=== PATIENT | female | born 1935 | race African-American/Black ===

== ENCOUNTER 2016-05-16 17:04 | Inpatient (IN) | payer MEDICARE, OTHER ==
--- NOTE | ~2016-05-16 | DS ---
Discharge Summary [address] [place]. [address] NAME: NICOLASA SHELDON : 37 STATUS : DIS IN PAT#: [id number] AGE: 80 ADM/REG DATE : 05/17/16 MR#: [id number] REPORT SERV DATE: 05/20/16 DICTATED BY: ROBERTA MÁRQUEZ DATE: 05/19/16 REPORT STATUS : Draft TRANSCRIBED BY: MODL DATE: 05/19/16 ADMISSION DATE: 05/17/2016 DISCHARGE DATE: 05/19/2016 REASON FOR ADMISSION: Acute on chronic kidney disease. HISTORY OF PRESENT ILLNESS: Please refer to Dr. Nelson's history and physical dated 05/16/2016 for complete details regarding the patient's admission. In brief, the patient was admitted to the Hospitalist Service for CHERYLE on CKD, stage 4, and Trichomonas. HOSPITAL COURSE: The patient had an uncomplicated hospital course. She follows closely with Dr. Garcia for her CKD, stage 4. She presented with complaints of facial swelling. Urinalysis showed positive for Trichomonas. She was started on p.o. Flagyl along with Levaquin prophylactically for a concern for a UTI. I assumed care of this patient the day after she was admitted. She did not exhibit any signs of significant anasarca. She was gently hydrated and her kidney function was trending down. Dr. Capellan was consulted and followed throughout the hospitalization, recommended switching her torsemide to 20 mg. He had ordered some Hemoccult stools, they were positive; however, the patient tells me on the day of discharge that her bowel movements have been brown. She does have a known history of esophageal and duodenal ulcer along with esophagitis for which she is on a PPI. Iron studies were obtained which were suggestive of anemia of chronic disease. The patient feels better and is requesting to go home. The patient was discharged today in stable condition to home if okay by Nephrology. DISCHARGE DIAGNOSES: Include: 1. Acute kidney injury on chronic kidney disease, stage 4. 2. Urinary tract infection with mixed len. 3. Trichomonas infection. 4. Insulin-dependent diabetes. 5. Uncontrolled hypertension. 6. Anasarca. 7. Hypokalemia. 8. History of chronic diastolic heart failure. 9. History of renal tubular acidosis type 4. 10.Anemia of chronic disease. 11.Glaucoma. 12.Esophagitis. 13.History of duodenal and esophageal ulcers. PROCEDURES: Include a consultation with Dr. Capellan, CT scan of the brain without contrast which showed moderate generalized atrophy and no acute process, and chest x-ray which showed cardiomegaly with small pleural effusions. DISCHARGE MEDICATIONS: Include gabapentin 100 mg three times a day; insulin injection, sliding scale; Levaquin 500 mg every 48 hours for the next 4 days; Protonix 40 mg once a day; sodium bicarbonate 1300 mg three times a day; Carafate 1 g every six hours; Demadex 20 Discharge Summary [address] [address] NAME: NICOLASA SHELDON : 36 STATUS : DIS IN PAT#: [id number] AGE: 80 ADM/REG DATE : 05/17/16 MR#: [id number] REPORT SERV DATE: 05/20/16 DICTATED BY: ROBERTA MÁRQUEZ DATE: 05/19/16 REPORT STATUS : Draft TRANSCRIBED BY: LOS DATE: 05/19/16 mg daily; clonidine 0.1 mg twice a day; hydralazine 75 mg three times a day; timolol eye drop twice a day; Simbrinza 1 drop 3 times a day; and verapamil 120 mg twice a day. FOLLOWUP: The patient will follow up with Dr. aGrcia and her PCP. This is Dr. Roberta Márquez spending over 30 minutes in discharge plan and coordination of care on Ms. Sheldon. TINY/LOS Roberta Márquez MD / [id number] CC: MD CHAPIS Hassan M.D.
--- NOTE | ~2016-05-16 | CN ---
Consultation Report [facility] [address] [place]. [address] NAME: NICOLASA SHELDON : 37 STATUS : ADM Bev PAT#: [id number] AGE: 80 ADM/REG DATE : 05/16/16 MR#: [id number] REPORT SERV DATE: 05/18/16 DICTATED BY: LARRY CHOU DATE: 05/17/16 REPORT STATUS : Draft TRANSCRIBED BY: MODL DATE: 05/17/16 NEPHROLOGY CONSULTATION DATE OF CONSULTATION: 05/17/2016 INDICATION FOR CONSULTATION: Acute on chronic kidney disease. HISTORY OF PRESENT ILLNESS: Ms. Sheldon is a 80-year-old female with a history of stage IV CKD, who presented to the emergency room with diffuse swelling of her face, lower extremities, as well as weakness. She had previously been admitted to the hospital in late February 2016 with sepsis due to E. coli pyelonephritis. Her creatinine peaked at 3.89 and was 2.2 at time of release to [facility]. Her creatinine ranged between 3 and 3.2 at [facility]. She has been on diuretics for proteinuria and has initiated evaluation for myeloma under Dr. Pablo Argueta. She is awaiting evaluation by an web applications architect. Her creatinine was 3.2 on admission and has fallen to 2.92. She has been given albumin and diuretics were presently put on hold. She indicates that she typically uses salt when eating. 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 PAST SURGICAL HISTORY: Exploratory laparotomy for small bowel obstruction and abdominal hysterectomy. ALLERGIES: NONE KNOWN. MEDICATIONS: Simbrinza one drop both eyes, clonidine, Neurontin, hydralazine, Levemir Insulin, Protonix, sodium bicarb, Carafate, Timolol eyedrops, Demadex, verapamil. SOCIAL HISTORY: The patient continues to smoke one-half pack a day of cigarettes. No alcohol use or illicit drugs. She has a friend but is not . FAMILY HISTORY: Mother at age 97. Father age of 101. Siblings with diabetes, macular degeneration, hypertension. No end-stage renal disease. REVIEW OF SYSTEMS: HEENT: No change in visual acuity. No epistaxis. No otic infection. No pharyngitis. PULMONARY: Notes occasional shortness of breath. No cough or hemoptysis. CARDIAC: Notes lower extremity edema and swelling in face. No chest pain. GI: No nausea, vomiting, or melena. : Denies dysuria, gross hematuria, or pyuria. MUSCULOSKELETAL: Some pain in back. Consultation Report [address] [place]. [address] NAME: NICOLASA SHELDON : 37 STATUS : ADM Bve PAT#: [id number] AGE: 80 ADM/REG DATE : 05/16/16 MR#: [id number] REPORT SERV DATE: 05/18/16 DICTATED BY: LARRY CHOU DATE: 05/17/16 REPORT STATUS : Draft TRANSCRIBED BY: MODSal DATE: 05/17/16 INTEGUMENT: No itching, no rash. NEUROLOGIC: No lateralizing weakness or seizure disorder. Remainder of 12-point review of systems is negative. PHYSICAL EXAMINATION: GENERAL: A pleasant female, alert, and cooperative. VITAL SIGNS: Blood pressure 161/74, temperature 98.1, respiratory rate 18, pulse 83. HEENT: Eyes, no scleral icterus. Pupils equal, reactive to light. Extraocular movement intact. Nares patent. No discharge. Throat, no injection. Mucous membranes moist. NECK: No thyromegaly, masses, or bruits. CHEST/LUNGS: Few late crackles posteriorly. No wheezing. No dullness to percussion. CARDIAC: Regular rate and rhythm, 1/6 systolic ejection murmur. No gallop or rub. ABDOMEN: Supple. Normoactive bowel sounds. Nontender. No hepatosplenomegaly. No masses. BREASTS: Exam not performed. PELVIC: Exam not performed. RECTAL: Exam not performed. EXTREMITIES: Trace edema. No calf tenderness. MUSCULOSKELETAL: No deformity. NEUROLOGIC: Cranial nerves intact. No lateralizing weakness. IMPRESSION: 1. Acute on chronic kidney disease versus progression of underlying chronic kidney disease, late stage IV. 2. Possible urinary tract infection. 3. Edema, related to underlying proteinuria, possible sodium intake. 4. Type 2 diabetes mellitus, poorly controlled. 5. Chronic obstructive pulmonary disease. 6. Chronic diastolic congestive heart failure. 7. Glaucoma. 8. Macular degeneration. 9. Anemia. 10.History of esophagitis, gastritis, peptic ulcer disease, and gastroparesis. 11.Remote E. coli pyelonephritis. 12.Possible myeloma. PLAN: 1. Concur with the albumin. We will initiate torsemide. 2. Lab. CG/MODL Larry Consultation Report [address] [place]. [address] NAME: NICOLASA SHELDON : 37 STATUS : ADM Bev PAT#: [id number] AGE: 80 ADM/REG DATE : 05/16/16 MR#: [id number] REPORT SERV DATE: 05/18/16 DICTATED BY: LARRY CHOU DATE: 05/17/16 REPORT STATUS : Draft TRANSCRIBED BY: LOS DATE: 05/17/16 Keegan Chou / [id number] CC: MD Jose Hassan
--- NOTE | ~2016-05-16 | HP ---
History And Physical [facility] [address] [place]. [address] NAME: NICOLASA SHELDON : 37 STATUS : ADM Bev PAT#: [id number] AGE: 80 ADM/REG DATE : 05/16/16 MR#: [id number] REPORT SERV DATE: 05/16/16 DICTATED BY: TOMMY GALVAN DATE: 05/16/16 REPORT STATUS : Draft TRANSCRIBED BY: MODL DATE: 05/16/16 DATE OF ADMISSION: 05/16/2016 POINT OF ENTRY: [facility] Emergency Department. PRIMARY BACK HOE MACHINE OPERATOR: Dr. Garcia. CHIEF COMPLAINT: Swelling and weakness. HISTORY OF PRESENT ILLNESS: Ms. Sheldon is a 80-year-old female with a history of poorly controlled insulin-dependent diabetes mellitus type 2 with most recent hemoglobin A1c of greater than 18.0 as well as hypertension, chronic kidney disease stage 4, and other medical comorbidities, who presents to the emergency department today with reports of diffuse swelling as well as weakness. The patient was admitted to the Hospitalist Service from 03/02/2016 through 03/21/2016 for E coli, pyelonephritis with associated sepsis and acute kidney injury. At that time, she was found to have uncontrolled diabetes with a hemoglobin A1c of 18. Her hospital course was also complicated by anasarca and volume overload associated with resuscitation as well as some GI bleeding secondary to chronic gastritis as well as evidence of esophagitis. The patient returns to the emergency room today and stating that she is having some diffuse facial swelling as well as swelling of her right upper extremity and bilateral lower feet. She denies any swelling of the lips, face, or tongue. Denies any troubles with swallowing, speaking, or any shortness of breath or stridor. The patient reports compliance with her hypertensive medications as well as her Levemir, however, she states she is not taking her NovoLog as she is afraid, it will cause hypoglycemia at home. She states that she has been doing well with staying hydrated and taking in fluids. Initial evaluation in the emergency department notable for creatinine of 3.20. Most recent creatinine in our system is 2.07. Urinalysis is positive for urinary tract infection. CT scan of the head was unremarkable. Chest x-ray did show some mild intravascular volume overload. She was subsequently admitted to the Hospitalist Service for further evaluation and management. The patient denies any recent fevers, night sweats, chills, chest pain, palpitations, shortness of breath, cough, sputum production, abdominal pain, nausea, vomiting, diarrhea, constipation, dysuria, melena, or hematochezia. REVIEW OF SYSTEMS: Comprehensive review of system is otherwise negative unless listed in history of present illness. PREVIOUS MEDICAL HISTORY: 1. Chronic kidney disease stage 4, baseline creatinine approximately 2. 2. Renal tubular acidosis type 4. History And Physical [address] [address] NAME: NICOLASA SHELDON : 37 STATUS : ADM Bev PAT#: [id number] AGE: 80 ADM/REG DATE : 05/16/16 MR#: [id number] REPORT SERV DATE: 05/16/16 DICTATED BY: TOMMY GALVAN DATE: 05/16/16 REPORT STATUS : Draft TRANSCRIBED BY: LOS DATE: 05/16/16 3. Uncontrolled insulin-dependent diabetes mellitus type 2. Hemoglobin A1c of 18.0. 4. Hypertension. 5. Chronic diastolic congestive heart failure. 6. COPD. 7. Macular degeneration. 8. Glaucoma. 9. Gastroparesis. 10.Chronic anemia secondary to anemia of chronic disease. 11.History of peptic ulcer disease. 12.History of esophagitis and gastritis. 13.History of E coli urinary tract infection with sepsis. 14.History of anasarca. SURGICAL HISTORY: 1. Abdominal hysterectomy. 2. Exploratory laparotomy as a child for small bowel obstruction. ALLERGIES: NO KNOWN DRUG ALLERGIES. HOME MEDICATIONS: 1. Simbrinza one drop t.i.d. both eyes. 2. Clonidine 0.1 mg b.i.d. 3. Neurontin 100 mg t.i.d. 4. Hydralazine 75 mg t.i.d. 5. Levemir 10-14 units daily depending on glucose. 6. Protonix 40 mg daily. 7. Sodium bicarbonate 1300 mg t.i.d. 8. Carafate 1 g q.6 hours. 9. Timolol b.i.d. both eyes. 10.Demadex 40 mg daily. 11.Verapamil 180 mg daily. SOCIAL HISTORY: She still smokes about a half pack per day. Denies any illicits. Denies any alcohol. FAMILY MEDICAL HISTORY: Mother of old age at 97. Father of old age at 104. Siblings with diabetes and macular degeneration. LABORATORY DATA AND IMAGIN. White count is 7.9, hemoglobin is 10.0, hematocrit is 30.2, platelet count is 389. INR 1.0. 2. Sodium is 141, potassium 3.1, chloride 100, carbon dioxide 30, BUN 40, creatinine 3.20, glucose is 187, calcium is 8.3, magnesium is 1.8. 3. Troponin is 0.03. 4. Urinalysis: Specific gravity is 1.012, hazy with large leukocyte esterase with 16 red, 80 white blood cells per high-powered field with 9 epithelial cells with rare bacteria as well as positive for Trichomonas. History And Physical [address] [address] NAME: NICOLASA SHELDON : 37 STATUS : ADM Bev PAT#: [id number] AGE: 80 ADM/REG DATE : 05/16/16 MR#: [id number] REPORT SERV DATE: 05/16/16 DICTATED BY: TOMMY GALVAN DATE: 05/16/16 REPORT STATUS : Draft TRANSCRIBED BY: LOS DATE: 05/16/16 5. EKG per my review shows normal sinus rhythm with no evidence of any acute ischemic infarction. Chest x-ray per my review shows some mild cardiomegaly as well as mild bilateral pleural effusions, right greater than left as well as some mild intravascular volume overload. 6. CT scan of the brain shows no acute intracranial abnormality. PHYSICAL EXAMINATION: VITAL SIGNS: Temperature is 98.2 degrees Fahrenheit, pulse is 82, respirations 18, saturating 95% on room air, blood pressure is 174/66. On recheck, blood pressure is now 197/91. GENERAL: The patient is awake, alert, in no acute distress, resting comfortably. She is an elderly female. Family is at bedside. HEENT: Atraumatic and normocephalic. Moist mucous membranes. Pupils are equal, round, reactive to light and accommodation. Extraocular eye movements are intact. No scleral icterus. NECK: No jugular venous distention. No carotid bruits. CARDIAC: Regular rate and rhythm. A 2/6 systolic murmur heard best over the left lower sternal border. LUNGS: Clear to auscultation bilaterally, except for some decreased breath sounds in the bases, but no wheezes, rhonchi, or crackles. ABDOMEN: Soft, nontender, nondistended. Good bowel sounds. No rebound, guarding, rigidity. EXTREMITIES: Warm and well perfused. She does have some 1+ bilateral lower extremity edema as well as some mild edema of the bilateral upper extremities. SKIN: Warm and dry, except for noted above. PSYCH: Affect appropriate. NEURO: Alert and oriented x3. Cranial nerves II through XII grossly intact. Speech is normal. Gait not assessed. ASSESSMENT: Ms. Sheldon is a 80-year-old female, who presents primarily with reports of diffuse swelling and found to have evidence of acute kidney injury on chronic kidney disease stage 4 as well as urinary tract infection. PROBLEM LIST: 1. Acute kidney injury on chronic kidney disease stage 4. 2. Urinary tract infection. 3. Trichomonas infection. 4. Insulin-dependent diabetes mellitus type 2. 5. Uncontrolled hypertension. 6. Diffuse edema, likely anasarca. 7. Hypokalemia. 8. History of chronic diastolic congestive heart failure. PLAN: 1. Acute kidney injury on chronic kidney disease stage 4. Suspect this is due to hypovolemia as well as possible contribution for uncontrolled hypertension and diabetes. We will hold nephrotoxic medications, provide some gentle IV fluid hydration, checking urine lytes. We will consult Dr. Garcia for assistance. History And Physical [address] [address] NAME: NICOLASA SHELDON : 37 STATUS : ADM Bev PAT#: [id number] AGE: 80 ADM/REG DATE : 05/16/16 MR#: [id number] REPORT SERV DATE: 05/16/16 DICTATED BY: TOMMY GALVAN DATE: 05/16/16 REPORT STATUS : Draft TRANSCRIBED BY: MODL DATE: 05/16/16 2. Urinary tract infection. We will place the patient on IV Levaquin as in her most recent hospitalization had both E coli as well as Enterococcus faecalis, which will cover both. Follow up urine culture. 3. Trichomonas infection. We will place the patient on Flagyl 500 mg b.i.d. for seven days. 4. Uncontrolled insulin-dependent diabetes mellitus type 2. We will recheck her hemoglobin A1c. Continue the patient's home Levemir, place her on a level 2 sliding scale. 5. Uncontrolled hypertension. Continue the patient's home medications and IV hydralazine p.r.n. 6. Edema, likely anasarca. The patient reports swelling of the face, arms, and legs. I suspect this is likely anasarca from her worsening chronic kidney disease as well as severe hypoalbuminemia from proteinuria as review of [employer] reveals her last known albumin level is 1.6. Albumin level here is pending at time of dictation. We will provide some IV albumin in addition to the gentle IV fluid hydration and observe for improvement. 7. DVT prophylaxis. Heparin subcutaneously. CODE STATUS: The patient wishes to be full code. JCB/MODL Tommy Galvan MD / [id number] CC: MD Dr. Tutu Woods of [facility] Sriram Garcia M.D.
[~2016-05-16 17:04] MED LIST: BETIMOL0.5 % OP; HYDROCHLOROT25 MG PO; INSNOV7030 SC; LEVEMIR SC; LISINOPRIL40 MG PO; SIMBRINZA 1%-0.28 ML OPH; V120 PO
[2016-05-16 17:49] LABS: BASOPHILS 0.5 %; BASOPHILS ABSOLUTE 0.04 10/3/uL (0.0-0.16); EOSINOPHILS 1.7 %; EOSINOPHILS ABSOLUTE 0.13 10/3/uL (0.0-0.53); IMMATURE GRANULOCYTES 0.1 %; IMMATURE GRANULOCYTES ABSOLUTE 0.01 10/3/uL (0.0-0.11); LYMPHOCYTES 35.2 %; LYMPHOCYTES ABSOLUTE 2.77 10/3/uL (0.67-4.30); MEAN CORPUS HGB CONC 33.1 g/dL (32.0-36.0); MEAN CORPUSCULAR VOLUME 87.5 fL (80-100); MEAN PLATELET VOLUME 10.6 fL (9.2-13.0); MONOCYTES 6.7 %; MONOCYTES ABSOLUTE 0.53 10/3/uL (0.21-1.20); NEUTROPHILS 55.8 %; NEUTROPHILS ABSOLUTE 4.38 10/3/uL (2.02-8.40); PLATELET COUNT 389 10/3/uL (150-400); RBC DISTRIBUTION WIDTH 15.8 % (12.0-16.0); WHITE BLOOD CELLS 7.9 10/3/uL (4.5-10.5)
[2016-05-16 17:53] LABS: HEMATOCRIT 30.2 % (36.0-48.0); MANUAL DIFF NO %; RED CELL COUNT 3.45 10/6/uL (4.0-5.6)
[2016-05-16 17:58] LABS: PARTIAL THROMBO TIME 27.2 SEC (22.5-37.2); PROTIME (NOT ORD) 12.6 SEC (12.0-14.5)
[2016-05-16 18:05] LABS: BUN (BLOOD UREA NITROGEN) 40 MG/DL (6-23); CALCIUM, SERUM 8.3 MG/DL (8.5-10.4); CHEST PAIN PROFILE TAT 0 Hrs 22 Mins; SODIUM, SERUM 141 MMOL/L (135-148); TROPONIN I 0.03 NG/ML (<0.05)
[2016-05-16 18:06] LABS: CHLORIDE, SERUM 100 MMOL/L (96-112); CO2 (CARBON DIOXIDE) 30 MMOL/L (24-34); GFR AFRICAN AMERICAN 15 ML/MIN (>=60); GFR NON AFRICAN AMERICAN 13 ML/MIN (>=60); GLUCOSE, SERUM 187 MG/DL (60-99); POTASSIUM, SERUM 3.1 MMOL/L (3.5-5.3)
[2016-05-16 18:31] LABS: ASCORBIC ACID (UR NOT ORDER) NEG (NEG); BILIRUBIN, URINE NEGATIVE (NEG); ER URINALYSIS TAT 0 Hrs 33 Mins; KETONE, URINE NEGATIVE (NEG); LEUKOCYTE ESTERASE(NOT OR LARGE (NEG); NITRITE (URINE) NEG (NEG); WBC (NOT ORDERED) (RFLEX) 80 (0-5)
[2016-05-16] MEDS ORDERED: CAT1 PO (20:22)
[2016-05-16] MEDS ORDERED: NEUR100 PO (20:22)
[2016-05-16] MEDS ORDERED: APRES50 PO (20:23)
[2016-05-16] MEDS ORDERED: PROTONIX PO (20:25)
[2016-05-16] MEDS ORDERED: SODBICAR10 PO (20:25)
[2016-05-16] MEDS ORDERED: SUCR PO (20:25)
[2016-05-16] MEDS ORDERED: CALAN120 MG PO (20:26)
[2016-05-16] MEDS ORDERED: DEMA20 PO (20:26)
[2016-05-16] MEDS ORDERED: LEVEMIR (20:30)
[2016-05-16 21:48] LABS: SGOT(AST) 11 U/L (5-40); SGPT(ALT) 10 U/L (5-65)
[2016-05-16 21:49] LABS: ALBUMIN 2.5 G/DL (3.5-5.0); ALKALINE PHOSPHATASE 129 U/L (45-117); DIRECT BILIRUBIN < 0.1 MG/DL (0.0-0.4); INDIRECT BILIRUBIN(NOT ORDER) 0.2 MG/DL (0.1-0.9); TOTAL BILIRUBIN 0.3 MG/DL (0-1.2); TOTAL PROTEIN 7.1 G/DL (6.0-8.5)
[2016-05-17 05:16] LABS: BASOPHILS 0.2 %; BASOPHILS ABSOLUTE 0.02 10/3/uL (0.0-0.16); EOSINOPHILS 1.5 %; EOSINOPHILS ABSOLUTE 0.13 10/3/uL (0.0-0.53); HEMOGLOBIN 8.4 g/dL (12.0-16.0); IMMATURE GRANULOCYTES 0.1 %; IMMATURE GRANULOCYTES ABSOLUTE 0.01 10/3/uL (0.0-0.11); LYMPHOCYTES 28.6 %; LYMPHOCYTES ABSOLUTE 2.48 10/3/uL (0.67-4.30); MEAN CORPUS HGB CONC 32.7 g/dL (32.0-36.0); MEAN CORPUSCULAR VOLUME 88.6 fL (80-100); MEAN PLATELET VOLUME 10.2 fL (9.2-13.0); MONOCYTES 7.4 %; MONOCYTES ABSOLUTE 0.64 10/3/uL (0.21-1.20); NEUTROPHILS 62.2 %; NEUTROPHILS ABSOLUTE 5.38 10/3/uL (2.02-8.40); PLATELET COUNT 341 10/3/uL (150-400); RBC DISTRIBUTION WIDTH 15.5 % (12.0-16.0); WHITE BLOOD CELLS 8.7 10/3/uL (4.5-10.5)
[2016-05-17 05:21] LABS: HEMATOCRIT 25.7 % (36.0-48.0); MANUAL DIFF NO %
[2016-05-17 05:38] LABS: ALBUMIN 2.1 G/DL (3.5-5.0); BUN (BLOOD UREA NITROGEN) 39 MG/DL (6-23); CHLORIDE, SERUM 106 MMOL/L (96-112); CO2 (CARBON DIOXIDE) 30 MMOL/L (24-34); CREATININE 2.92 MG/DL (0.55-1.02); FREE T4 1.08 NG/DL (0.76-1.46); GFR AFRICAN AMERICAN 17 ML/MIN (>=60); GFR NON AFRICAN AMERICAN 15 ML/MIN (>=60); POTASSIUM, SERUM 3.3 MMOL/L (3.5-5.3); SODIUM, SERUM 146 MMOL/L (135-148)
[2016-05-17 05:47] LABS: GLUCOSE, SERUM 139 MG/DL (60-99)
[2016-05-17 07:49] LABS: CREATININE, URINE 95.2 MG/DL
[2016-05-18 08:03] LABS: BASOPHILS 0.6 %; BASOPHILS ABSOLUTE 0.05 10/3/uL (0.0-0.16); EOSINOPHILS 2.3 %; EOSINOPHILS ABSOLUTE 0.18 10/3/uL (0.0-0.53); HEMATOCRIT 27.5 % (36.0-48.0); IMMATURE GRANULOCYTES 0.1 %; IMMATURE GRANULOCYTES ABSOLUTE 0.01 10/3/uL (0.0-0.11); LYMPHOCYTES 32.5 %; LYMPHOCYTES ABSOLUTE 2.59 10/3/uL (0.67-4.30); MEAN CORPUS HGB CONC 32.7 g/dL (32.0-36.0); MEAN CORPUSCULAR HEMOGLOB 29.1 pg (26.0-34.0); MEAN PLATELET VOLUME 10.3 fL (9.2-13.0); MONOCYTES 6.4 %; MONOCYTES ABSOLUTE 0.51 10/3/uL (0.21-1.20); NEUTROPHILS 58.1 %; NEUTROPHILS ABSOLUTE 4.62 10/3/uL (2.02-8.40); PLATELET COUNT 357 10/3/uL (150-400); RBC DISTRIBUTION WIDTH 15.5 % (12.0-16.0); RED CELL COUNT 3.09 10/6/uL (4.0-5.6)
[2016-05-18 08:08] LABS: MANUAL DIFF NO %
[2016-05-18 08:15] LABS: ALBUMIN 2.2 G/DL (3.5-5.0); BUN (BLOOD UREA NITROGEN) 37 MG/DL (6-23); CALCIUM, SERUM 8.8 MG/DL (8.5-10.4); CHLORIDE, SERUM 105 MMOL/L (96-112); CO2 (CARBON DIOXIDE) 29 MMOL/L (24-34); CREATININE 2.79 MG/DL (0.55-1.02); GFR AFRICAN AMERICAN 18 ML/MIN (>=60); GFR NON AFRICAN AMERICAN 15 ML/MIN (>=60); GLUCOSE, SERUM 129 MG/DL (60-99); PHOSPHORUS, SERUM 3.1 MG/DL (2.5-4.5); POTASSIUM, SERUM 3.1 MMOL/L (3.5-5.3); SODIUM, SERUM 143 MMOL/L (135-148)
[2016-05-19 05:34] LABS: BASOPHILS 0.6 %; BASOPHILS ABSOLUTE 0.05 10/3/uL (0.0-0.16); EOSINOPHILS ABSOLUTE 0.24 10/3/uL (0.0-0.53); HEMATOCRIT 27.4 % (36.0-48.0); IMMATURE GRANULOCYTES 0.4 %; IMMATURE GRANULOCYTES ABSOLUTE 0.03 10/3/uL (0.0-0.11); LYMPHOCYTES 28.3 %; MANUAL DIFF NO %; MEAN CORPUS HGB CONC 32.8 g/dL (32.0-36.0); MEAN CORPUSCULAR HEMOGLOB 29.1 pg (26.0-34.0); MEAN CORPUSCULAR VOLUME 88.7 fL (80-100); MEAN PLATELET VOLUME 10.3 fL (9.2-13.0); MONOCYTES 7.9 %; MONOCYTES ABSOLUTE 0.64 10/3/uL (0.21-1.20); NEUTROPHILS 59.8 %; NEUTROPHILS ABSOLUTE 4.86 10/3/uL (2.02-8.40); PLATELET COUNT 375 10/3/uL (150-400); RBC DISTRIBUTION WIDTH 15.5 % (12.0-16.0); RED CELL COUNT 3.09 10/6/uL (4.0-5.6); WHITE BLOOD CELLS 8.1 10/3/uL (4.5-10.5)
[2016-05-19 06:08] LABS: % IRON SAT 25 % (20-50); ALBUMIN 2.1 G/DL (3.5-5.0); BUN (BLOOD UREA NITROGEN) 35 MG/DL (6-23); CALCIUM, SERUM 8.8 MG/DL (8.5-10.4); CHLORIDE, SERUM 106 MMOL/L (96-112); CO2 (CARBON DIOXIDE) 29 MMOL/L (24-34); CREATININE 2.83 MG/DL (0.55-1.02); FERRITIN 102 NG/ML (8-252); GFR AFRICAN AMERICAN 18 ML/MIN (>=60); GFR NON AFRICAN AMERICAN 15 ML/MIN (>=60); IRON BINDING CAPACITY 157 MCG/DL (225-410); IRON, SERUM 39 MCG/DL (35-150); SODIUM, SERUM 142 MMOL/L (135-148)
[2016-05-19 06:12] LABS: FOLATE 13.7 NG/ML (>5.2); GLUCOSE, SERUM 163 MG/DL (60-99); PHOSPHORUS, SERUM 1.9 MG/DL (2.5-4.5); POTASSIUM, SERUM 4.2 MMOL/L (3.5-5.3)
[2016-05-19] MEDS ORDERED: LEVAQUIN750 MG PO (11:33)
[2016-05-19] MEDS ORDERED: FLAG500TAB PO (11:35)
[2016-05-20 06:35] LABS: TOTAL PROTEIN URINE 257.1 MG/DL
[2016-05-20 07:12] LABS: T.V. 24HR UR 1275 ML/24HR (600-1600)
[2016-05-20 10:03] LABS: ALBUMIN RELAT % 48.1 %
[2016-06-21] MEDS ORDERED: PROAIR HFA INH (14:28)
[2016-06-21] MEDS ORDERED: AUG875 PO (14:29)
[2016-06-21] MEDS ORDERED: Z-PAK PO (14:29)
[2016-09-07] MEDS ORDERED: SUCR PO (14:43)
[2016-09-07] MEDS ORDERED: SODBICAR10 PO (14:43)
[2016-09-07] MEDS ORDERED: APRES50 PO (14:44)
[2016-09-07] MEDS ORDERED: VITAMIN D31000 UNIT PO (14:45)
[2016-09-08] MEDS ORDERED: SIMBRINZA 1%-0.28 ML OPH (14:12)
[2016-09-08] MEDS ORDERED: TIMOLOL MAL0.5 % OPH (14:57)
[2016-09-12] MEDS ORDERED: ASAB PO (12:36)
[2016-09-12] MEDS ORDERED: TRUSOPT2 % OPH (12:37)
[2016-09-12] MEDS ORDERED: BRIMONIDINE0.2 % OPH (12:37)
[2016-09-12] MEDS ORDERED: CAT2 PO (12:42)
[2016-09-12] MEDS ORDERED: LEVEMIR SC ×2 (12:44→12:45)
== END 2016-05-19 17:25 | disposition home or self-care (01) | DRG 683 ==
LOC: ER 17:04 → CDU1 21:37 → 7NO 05-17 11:04
PROVIDERS: Emergency Medicine; Hospitalist; Internal Medicine; Internal Medicine Nephrology
DX: N17.9 Acute kidney failure, unspecified (principal); N39.0 Urinary tract infection, site not specified; I50.32 Chronic diastolic (congestive) heart failure; I13.0 Hypertensive heart and chronic kidney disease with heart failure and stage 1 through stage 4 chronic kidney disease, or unspecified chronic kidney disease; A59.9 Trichomoniasis, unspecified; E11.9 Type 2 diabetes mellitus without complications; E87.6 Hypokalemia; N18.4 Chronic kidney disease, stage 4 (severe); Z79.4 Long term (current) use of insulin
CPT/HCPCS: 70450; 71010; 80048; 80069; 80076; 81001; 82272; 82570; 82607; 82728; 82746; 82962; 83036; 83540; 83550; 83735; 83880; 83935; 84156; 84166; 84300; 84439; 84443; 84484; 85025; 85610; 85730; 87086; 93005; 96374; 99285; A9270-GY; J0360; J1956; P9047

== ENCOUNTER 2016-06-21 15:20 | Inpatient (IN) | payer MEDICARE, OTHER ==
[2016-06-20 19:34] LABS: ASCORBIC ACID (UR NOT ORDER) NEG (NEG); BILIRUBIN, URINE NEGATIVE (NEG); KETONE, URINE NEGATIVE (NEG)
--- NOTE | ~2016-06-21 | DS ---
Discharge Summary [facility] [address] [place]. [address] NAME: NICOLASA SHELDON : 37 STATUS : DIS IN PAT#: [id number] AGE: 80 ADM/REG DATE : 06/21/16 MR#: [id number] REPORT SERV DATE: 06/28/16 DICTATED BY: JR. MCCALLUM WILLIAM JOHN DATE: 06/27/16 REPORT STATUS : Draft TRANSCRIBED BY: MODL DATE: 06/27/16 ADMISSION DATE: 06/21/2016 DISCHARGE DATE: 06/27/2016 DISCHARGE DIAGNOSES: Include. 1. Acute kidney injury on stage 4 chronic kidney disease. 2. Acute diastolic heart failure. 3. Bilateral pleural effusion. 4. 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 5. Hypertension. 6. Chronic obstructive pulmonary disease. 7. Tobacco abuse. OPERATIONS, PROCEDURES, AND TREATMENTS: Include. 1. Chest x-ray done 06/21/2016, which showed interval development right pleural effusion, right basilar consolidation. 2. CT chest done 06/21/2016, which showed moderate to large right and moderate left pleural effusion with dense compressive atelectasis and consolidation throughout the right lower lobe, posterior right upper lobe and posterior left lower lobe. There was some ground-glass densities within the aerated portions of the lung, particularly the upper lobe possibly representing edema. There is mild cardiomegaly, new since February 2016. There is diffuse subcutaneous edema and anasarca throughout the chest as well as upper abdomen. 3. CT lumbar spine done 06/21/2016, which showed at L5-S1 there was severe degenerative disk disease with disk herniation posterior osteophytes and facet hypertrophy, causing bilateral S1-L5 nerve root compression. At L4-5, there was disk bulging with facet degenerative changes including right facet hypertrophy resulting in mild central canal stenosis and moderate narrowing of the right neural foramen and mild narrowing of the left neural foramen. 4. Right thoracentesis done on 06/22/2016 with 1100 mL of fluid removed. 5. Chest x-ray on 06/22/2016 showed reduced right pleural effusion after a right thoracentesis, small amount of residual pleural fluid seen bilaterally. 6. Left ultrasound-guided thoracentesis with 200 mL of fluid removed on 06/24/2016. CONSULTING PHYSICIAN: Include Dr. Estrada of Nephrology. DISCHARGE MEDICATIONS: Include. 1. Artificial Tears one drop five to six times daily. 2. Brimonidine 0.2% one drop in each eye three times a day. 3. Trusopt three times a day. 4. Neurontin 100 mg three times a day. 5. Protonix 40 mg daily. 6. Torsemide per Dr. Estrada. 7. Timolol 1 drop in each eye three times a day. 8. Verapamil 120 mg twice a day. 9. Clonidine 0.1 mg orally twice a day. Discharge Summary [address] [address] NAME: NICOLASA SHELDON : 37 STATUS : DIS IN PAT#: [id number] AGE: 80 ADM/REG DATE : 06/21/16 MR#: [id number] REPORT SERV DATE: 06/28/16 DICTATED BY: JR. MCCALLUM WILLIAM JOHN DATE: 06/27/16 REPORT STATUS : Draft TRANSCRIBED BY: LOS DATE: 06/27/16 10.Albuterol metered-dose inhaler one to two puffs every four hours as needed. HOSPITAL COURSE: The patient is a 80-year-old female presented to the emergency room on 06/21/2016 with shortness of breath. The patient has a history of diastolic heart failure as well as chronic kidney disease, stage 4. She said her shortness of breath started about 2 p.m. on the day of presentation. There was no preceding fevers or cough or chest pain. On initial exam, her temperature is 98.4, blood pressure 97/44, heart rate 61, respiratory rate of 14, she was in no distress. Lung exam shows fairly clear to auscultation with diminished breath sounds on the right and bilateral bases on 2 L oxygen by nasal cannula. There is no peripheral edema. Laboratory was significant for a BUN of 45, creatinine is 3.7. Troponin was negative. Chest x-ray and CT of the lumbar spine are detailed above. The patient was admitted to the hospital for acute on chronic fluid overload due to diastolic heart failure and acute on chronic kidney injury. She was placed on diuretics, initially Lasix later changed to torsemide with gradual diuresis. She was seen in consultation by Dr. Estrada of Nephrology and followed throughout remainder of the hospital course by him. The patient gradually improved. She weaned down to off oxygen and was comfortable and had no peripheral edema. She also had bilateral thoracentesis with a total of 1100 removed from the right side and 200 mL removed from the left side. The patient's Valladares was removed on 06/26/2016. She was followed by Dr. Estrada and myself to be stable for discharge on 06/27/2016, with close followup. She will follow up with Dr. Estrada as well as Dr. Cam, her primary care provider. Regarding diabetes mellitus, her hemoglobin A1c was 7.7, she was on sliding scale insulin throughout the hospital stay and actually was on some Lantus. Unfortunately, the patient is likely not capable of sustaining an intensive insulin regimen. We will therefore defer this to Dr. Cam. Regarding hypertension, COPD, and tobacco abuse, patient was counseled to stop smoking. The remainder of the health problems were not addressed during this hospital stay. The patient will be discharged home today 06/27/2016 on 1.5 L fluid restriction and renal diet. She will follow up with Dr. Estrada and Dr. Cam per their wishes. The diuretic at discharge will be addressed by Dr. Estrada. ACTIVITY: As tolerated. For discharge exam and laboratory, please see daily progress note. This discharge took 37 minutes for patient encounter, coordination of care, and documentation. WJF/LOS Javed Mccallum Jr, MD Discharge Summary [address] [address] NAME: NICOLASA SHELDON : 37 STATUS : DIS IN PAT#: [id number] AGE: 80 ADM/REG DATE : 06/21/16 MR#: [id number] REPORT SERV DATE: 06/28/16 DICTATED BY: JR. MCCALLUM WILLIAM JOHN DATE: 06/27/16 REPORT STATUS : Draft TRANSCRIBED BY: LOS DATE: 06/27/16 / [id number] CC: Javed Mccallum Jr, MD
--- NOTE | ~2016-06-21 | IDS ---
Interim Discharge Summary [facility] [address] [place]. [address] NAME: NICOLASA SHELDON : 37 STATUS : ADM IN [facility]#: [id number] AGE: 80 ADM/REG DATE : 06/21/16 MR#: [id number] REPORT SERV DATE: 06/25/16 DICTATED BY: DOMINGO OSBORN DATE: 06/24/16 REPORT STATUS : Draft TRANSCRIBED BY: MODL DATE: 06/24/16 ADMISSION DATE: 06/21/2016 DISCHARGE DATE: WORKING DIAGNOSES: 1. Acute kidney injury on chronic kidney disease, stage 4 at baseline. 2. Acute diastolic congestive heart failure exacerbation. 3. Bilateral pleural effusion, status post thoracentesis bilaterally. 4. Hypertension. 5. Insulin-dependent diabetes type 2. 6. Chronic obstructive pulmonary disease. 7. Anemia. 8. Smoking. CONSULTS: Nephrology. PROCEDURES: 1. Right-sided thoracentesis, 1100 mL of pleural fluid removed. 2. Left-sided thoracentesis on 06/24/2016, 200 mL removed. HOSPITAL COURSE: This is a 80-year-old lady who was admitted to the hospital with acute on chronic diastolic congestive heart failure, as well as acute kidney injury on chronic kidney disease. For details, please refer to my own H and P. In summary, the patient was admitted and was given gentle IV Lasix diuresis. The patient did present with an acute kidney injury with creatinine of 3.71, whereas her baseline is between 2.2 and 3.7. With gentle diuresis, the patient's renal function declined and Nephrology was consulted. From Nephrology standpoint, the patient is being considered for renal replacement therapy in the form of hemodialysis if the patient's renal function does not improve over time within the next few days. In the meantime, the patient was found to have bilateral pleural effusion. The patient had bilateral thoracentesis to help get a head start. Currently, the patient is stable, back at baseline on a couple of liters of oxygen per nasal cannula. Of primary concern would be her renal function, and whether she will need a renal replacement therapy or not, based on the patient's renal function, that has improved slightly overnight, I am hopeful that the patient may not need renal replacement therapy and may be discharged to home soon. One thing of note, the patient was found to have a TSH level of 6.2, but with a normal free T4 level, and thus the patient was diagnosed with a subclinical hypothyroidism and no treatment has been initiated. This should be followed as an outpatient, and if her TSH level continues to be high then consideration may be necessary for treatment of hypothyroidism. BENITA/LOS Domingo Osborn MD Interim Discharge Summary [address] [address] NAME: NICOLASA SHELDON : 37 STATUS : ADM IN PAT#: [id number] AGE: 80 ADM/REG DATE : 06/21/16 MR#: [id number] REPORT SERV DATE: 06/25/16 DICTATED BY: DOMINGO OSBORN DATE: 06/24/16 REPORT STATUS : Draft TRANSCRIBED BY: MODL DATE: 06/24/16 / [id number] CC: MD KYE Carrizales PAUL DOUGLAS
--- NOTE | ~2016-06-21 | HP ---
History And Physical [address] [place]. [address] NAME: NICOLASA SHELDON : 37 STATUS : ADM IN [facility]#: [id number] AGE: 80 ADM/REG DATE : 06/21/16 MR#: [id number] REPORT SERV DATE: 06/22/16 DICTATED BY: DOMINGO OSBORN DATE: 06/21/16 REPORT STATUS : Draft TRANSCRIBED BY: MODL DATE: 06/21/16 DATE OF ADMISSION: 06/21/2016 CHIEF COMPLAINT: Shortness of breath. HISTORY OF PRESENT ILLNESS: This is a 80-year-old lady with history of diastolic congestive heart failure, as well as chronic kidney disease, presenting with shortness of breath. The patient reports that her shortness of breath started acutely around 2 p.m. this afternoon. The patient did not have any fevers or cough. Denies any chest pain. The patient did have improvement of her shortness of breath by sitting up and more so by standing up. The patient was brought to the ER for further evaluation and care. In the ER, the patient was found to be afebrile and hemodynamically stable. The patient initially required 6 L of oxygen per nasal cannula, but with sitting up, the patient was able to maintain adequate oxygen saturations on room air. Initial lab evaluation revealed acutely worsened acute kidney injury with creatinine of 3.71. The patient was also found to have an elevated BNP of 1660 when her baseline is around 600. Chest x-ray showed a right- sided pleural effusion with right-sided basilar consolidation. Internal Medicine consultation was requested for admission of the patient for further evaluation and care. REVIEW OF SYSTEMS: The patient denies any fevers or chills. Also, 14-point review of systems reviewed and negative other than mentioned above. MEDICATIONS: 1. ProAir one to two puffs inhaled q.4 hours p.r.n. 2. Augmentin 875 one tablet p.o. b.i.d. x8 days. The duration should have been finished. 3. Zithromax 250 mg p.o. daily x5 days, again the patient should have completed the therapy. 4. Catapres 0.1 mg p.o. b.i.d. 5. Neurontin 100 mg p.o. three times daily. 6. Protonix 40 mg p.o. before breakfast. 7. Demadex 20 mg p.o. daily. 8. Verapamil 180 mg p.o. b.i.d. ALLERGIES: NKDA. PAST MEDICAL HISTORY: 1. Diastolic congestive heart failure. 2. Chronic kidney disease, stage IV with baseline creatinine of 2 up until recently, most recent outpatient creatinine is 2.7. 3. Renal tubular acidosis type 4. 4. Insulin-dependent diabetes type 2. 5. Hypertension. 6. COPD. 7. Anemia. History And Physical [address] [address] NAME: NICOLASA SHELDON : 37 STATUS : ADM IN [facility]#: [id number] AGE: 80 ADM/REG DATE : 06/21/16 MR#: [id number] REPORT SERV DATE: 06/22/16 DICTATED BY: DOMINGO OSBORN DATE: 06/21/16 REPORT STATUS : Draft TRANSCRIBED BY: LOS DATE: 06/21/16 8. Esophagitis and gastritis. PAST SURGICAL HISTORY: 1. Hysterectomy. 2. Exploratory laparotomy for small-bowel obstruction when the patient was really young. FAMILY HISTORY: Negative. SOCIAL HISTORY: The patient unfortunately continues to smoke about half a pack on a daily basis. The patient, otherwise does not drink alcohol. The patient lives at home by herself and the patient is here in the ER by herself without any family members. PHYSICAL EXAMINATION: VITAL SIGNS: Temperature 98.4, blood pressure 97/44, pulse 61, respiratory rate is 14, saturating 98% on 6 L of oxygen per nasal cannula. NEUROLOGIC: The patient is alert and oriented x3 with no focal neurologic deficits. GENERAL: The patient is awake, does not appear to be in acute distress, and she is cooperative. NECK: No JVD. No lymphadenopathy. Normal thyroid. CHEST: No midline sternotomy scar and no tenderness to palpation. LUNGS: Fairly clear to auscultation bilaterally, but diminished breath sounds on the right lung and bilateral lung bases. The patient is now on 2 L of oxygen per nasal cannula and she is breathing normally. CARDIOVASCULAR: Regular rate and rhythm with no murmurs, rubs, or gallops and PMI is nondisplaced. ABDOMEN: Soft, nontender, with active bowel sounds and no organomegaly. EXTREMITIES: No edema. Normal distal pulses. No calf tenderness. SKIN: Clean, dry, warm, and intact. LABORATORY DATA: Sodium is 136, potassium 4.5, chloride 98, BUN 45, creatinine 3.71, glucose 188, calcium 9.2, magnesium 2.2. White blood cell count is 8.5, hemoglobin 8.9, platelets 355. INR is 1.1. Troponin is 0.03. BNP is 1660. Lactate is 0.6. Chest x-ray is personally interpreted and it shows a right-sided pleural effusion along with right-sided basilar consolidation. CT of the L-spine was performed due to the patient complaining of back pain and it was largely benign without any acute changes. The patient did have quite a bit of degenerative chronic changes. ASSESSMENT: This is a 80-year-old lady with history of diastolic congestive heart failure, presenting with acute dyspnea. 1. Acute on chronic diastolic congestive heart failure exacerbation. 2. Acute kidney injury on chronic kidney disease, stage IV at baseline. The patient's creatinine is 3.7 today and her baseline is around 2.7. 3. Right-sided pleural effusion as well as right lower lobe consolidation, probably related to above. History And Physical [address] [address] NAME: NICOLASA SHELDON : 37 STATUS : ADM IN [facility]#: [id number] AGE: 80 ADM/REG DATE : 06/21/16 MR#: [id number] REPORT SERV DATE: 06/22/16 DICTATED BY: DOMINGO OSBORN DATE: 06/21/16 REPORT STATUS : Draft TRANSCRIBED BY: MODL DATE: 06/21/16 4. Hypertension. 5. Insulin-dependent diabetes type 2. 6. Chronic obstructive pulmonary disease. 7. Anemia. 8. Smoking. PLAN: My plan is to admit the patient under telemetry monitoring. The patient will be given aggressive IV Lasix diuresis. In's and out's will be closely monitored as well as daily weights and renal function. I will have a very low threshold to get Nephrology on board with the patient's baseline stage 4 chronic kidney disease. For the right-sided pleural effusion and potential right lower lobe pneumonia, I will check a CT of the chest without contrast, and I will also order a right-sided ultrasound-guided thoracentesis to see if we can help mobilize the fluid a little sooner. Otherwise, the patient will be continued off oxygen support and bronchodilator therapies as needed. For the rest of stable past medical conditions including hypertension, diabetes, COPD, et al., I will continue home medications. For smoking cessation, counseling was provided. Standard DVT prophylaxis. The patient is full code at this time. YSC/MODL Domingo Osborn MD / [id number] CC: MD KYE Carrizales PAUL DOUGLAS
--- NOTE | ~2016-06-21 | CN ---
Consultation Report [facility] [address] [place]. [address] NAME: NICOLASA SHELDON : 37 STATUS : ADM IN [facility]#: [id number] AGE: 80 ADM/REG DATE : 06/21/16 MR#: [id number] REPORT SERV DATE: 06/22/16 DICTATED BY: RAQUEL FERNANDEZ DATE: 06/22/16 REPORT STATUS : Draft TRANSCRIBED BY: MODL DATE: 06/22/16 NEPHROLOGY CONSULT DATE OF CONSULTATION: 06/22/2016 REASON FOR CONSULT: CKD with CHEYRLE. HPI: Ms Sheldon is a very pleasant 80-year-old female with known chronic kidney disease, followed in the office of [facility] by Dr. Mikal Estrada. Unfortunately, it is the weekend and records are not available at the time of this dictation. However, baseline creatinine during an admission here in March 2016 showed creatinine was between 2.1 and 2.4. She was recently here in May with volume overload, during which time, her creatinine ranged between 2.7 and 3.2. Most recently, on 06/11/2016, creatinine was 2.7. She was admitted yesterday with a large right pleural effusion and is postop day #0, thoracentesis of 1100 mL. Chest x-ray today shows resolution of the effusion, but ongoing edema. BNP was 1646 and today creatinine is up to 3.8. Urinalysis shows 4+ protein with no blood. CT of the L-spine showed DJD of L4-S1 with disk bulging and mild stenosis. PAST MEDICAL HISTORY: 1. Chronic kidney disease with recent baseline creatinine 2.7 to 3.2, stage 4. 2. Hypertension. 3. COPD with ongoing tobacco abuse. 4. Anemia. 5. MGUS. 6. February 2016, EF 60% with mild diastolic dysfunction. No RVSP documented on the echo. 7. Subnephrotic range proteinuria 3.28 g in May 2016 with negative urine immunofixation electrophoresis. 8. Insulin-dependent diabetes mellitus since 1993. Her A1c was 18% in February 2016 and 9.3% in May 2016. MEDICATIONS: On admission, albuterol, Augmentin, Zithromax, clonidine 0.1 b.i.d., Neurontin 100 mg t.i.d., Protonix 40 mg daily, Demadex 20 mg daily, and verapamil 120 mg b.i.d. PAST FAMILY HISTORY: No ESRD. SOCIAL HISTORY: She is single. Retired. Lives in [place]. REVIEW OF SYSTEMS: Significant for a 15-pound weight gain, dyspnea, orthopnea, PND, and edema over the last two to three weeks. Denies OTC NSAIDs other than daily aspirin. Appetite, preserved. Fatigue noted. No loss of taste for food. Consultation Report [address] [place]. [address] NAME: NICOLASA SHELDON : 37 STATUS : ADM IN PAT#: [id number] AGE: 80 ADM/REG DATE : 06/21/16 MR#: [id number] REPORT SERV DATE: 06/22/16 DICTATED BY: RAQUEL FERNANDEZ DATE: 06/22/16 REPORT STATUS : Draft TRANSCRIBED BY: LOS DATE: 06/22/16 PHYSICAL EXAMINATION: VITAL SIGNS: Temperature 97, pulse 70, respirations 16, blood pressure 148/63, 96% sat on 3 L per nasal cannula. GENERAL: She is a very pleasant elderly female. Awake, alert, oriented, and cooperative with the exam. Good historian. She is eating lunch, sitting up in her hospital bed, in no distress. HEENT: Sclerae without icterus. Conjunctivae not injected. NECK: JVD 10 cm. Bilateral rhonchi are appreciated, worse on the right with decreased breath sounds at both bases. No dyspnea or tachypnea on O2 per nasal cannula. Regular rate and rhythm. 2/6 murmur. No rub. ABDOMEN: Soft, nontender, nondistended. Bowel sounds present throughout. No rebound or guarding. Peritoneal signs. EXTREMITIES: Show 1+ edema at the hips. SKIN: Without rash. PSYCH: Mood and affect are appropriate. MUSCULOSKELETAL: Without active tenosynovitis or gout. Urine output is noted in the Valladares catheter. LABORATORY DATA: Sodium 137, potassium 4.1, bicarb 32, BUN 46, creatinine 3.8, GFR 12 mL/minute, calcium 9.3. Troponin 0.03. White count 7.3 thousand, hemoglobin 8.7, platelets 340,000. ASSESSMENT/PLAN: Ms Sheldon has chronic kidney disease stage 4, now with worsened renal function. Proteinuria 3.28 g, right pleural effusion, postop day #0, thoracentesis, volume overload, anemia, insulin-dependent diabetes mellitus, hypertension, chronic obstructive pulmonary disease, and monoclonal gammopathy of undetermined significance. Unclear at this point, whether this is acute kidney injury versus progression of underlying chronic disease. More than likely, she has underlying diabetic nephropathy and her volume overload is resultant from proteinuria (?). Her albumin was 2.1 last month. Doubtful this is related to her mild diastolic dysfunction on echo in February 2016. No plans for renal biopsy at this time. She has no hematuria and this is not rapidly progressive glomerulonephritis. Watch labs. Provide supportive care. No DM inhibitor or ARB. If she does not respond to medical management, would have a low threshold for initiation of chronic renal replacement therapy in the form of dialysis in the next two or three days. We will follow closely with you. Appreciate consult. JULIUS/LOS Raquel Fernandez M.D. Consultation Report [address] [address] NAME: NICOLASA SHELDON : 37 STATUS : ADM IN PAT#: [id number] AGE: 80 ADM/REG DATE : 06/21/16 MR#: [id number] REPORT SERV DATE: 06/22/16 DICTATED BY: RAQUEL FERNANDEZ DATE: 06/22/16 REPORT STATUS : Draft TRANSCRIBED BY: LOS DATE: 06/22/16 / [id number] CC: MD KYE Carrizales,CHAPIS Estrada M.D.
[~2016-06-21 15:20] MED LIST changes: +APRES50 PO; +AUG875 PO; +CALAN120 MG PO; +CAT1 PO; +DEMA20 PO; +FLAG500TAB PO; +LEVAQUIN750 MG PO; +LEVEMIR; +NEUR100 PO; +PROAIR HFA INH; +PROTONIX PO; +SODBICAR10 PO; +SUCR PO; +Z-PAK PO
[2016-06-21 15:49] LABS: BASOPHILS 0.1 %; BASOPHILS ABSOLUTE 0.01 10/3/uL (0.0-0.16); EOSINOPHILS 0.5 %; EOSINOPHILS ABSOLUTE 0.04 10/3/uL (0.0-0.53); ER CBC TAT 0 Hrs 07 Mins; HEMATOCRIT 26.8 % (36.0-48.0); HEMOGLOBIN 8.9 g/dL (12.0-16.0); IMMATURE GRANULOCYTES 0.4 %; IMMATURE GRANULOCYTES ABSOLUTE 0.03 10/3/uL (0.0-0.11); LYMPHOCYTES 16.5 %; MANUAL DIFF NO %; MEAN CORPUS HGB CONC 33.2 g/dL (32.0-36.0); MEAN CORPUSCULAR HEMOGLOB 28.7 pg (26.0-34.0); MEAN CORPUSCULAR VOLUME 86.5 fL (80-100); MEAN PLATELET VOLUME 10.1 fL (9.2-13.0); MONOCYTES 7.4 %; MONOCYTES ABSOLUTE 0.63 10/3/uL (0.21-1.20); NEUTROPHILS 75.1 %; NEUTROPHILS ABSOLUTE 6.38 10/3/uL (2.02-8.40); PLATELET COUNT 355 10/3/uL (150-400); RBC DISTRIBUTION WIDTH 14.9 % (12.0-16.0); WHITE BLOOD CELLS 8.5 10/3/uL (4.5-10.5)
[2016-06-21 15:56] LABS: INTERNATIONAL NORMAL RATI 1.1 UNITS (-); PARTIAL THROMBO TIME 32.1 SEC (22.5-37.2); PROTIME (NOT ORD) 13.9 SEC (12.0-14.5)
[2016-06-21 16:08] LABS: BUN (BLOOD UREA NITROGEN) 45 MG/DL (6-23); CALCIUM, SERUM 9.2 MG/DL (8.5-10.4); CHEST PAIN PROFILE TAT 0 Hrs 26 Mins; CHLORIDE, SERUM 98 MMOL/L (96-112); CO2 (CARBON DIOXIDE) 33 MMOL/L (24-34); CREATININE 3.71 MG/DL (0.55-1.02); GFR AFRICAN AMERICAN 13 ML/MIN (>=60); GFR NON AFRICAN AMERICAN 11 ML/MIN (>=60); GLUCOSE, SERUM 188 MG/DL (60-99); POTASSIUM, SERUM 4.5 MMOL/L (3.5-5.3); SODIUM, SERUM 136 MMOL/L (135-148); TROPONIN I 0.03 NG/ML (<0.05)
[2016-06-21 18:30] LABS: ALLENS TEST Pos; CARBOXYHEMOGLOBIN 1.8 % (0-3); HCO3 (ACTUAL BICARBONATE) 29.4 MEQ/L (23-27); HEMOBLOGIN CONTENT 9.9 G/DL (12-16); INSTRUMENT SERIAL # 8087; METHEMOGLOBIN 0.2 % (0-3); OPERATOR ID 14335; PCO2 (CO2 TENSION) 43 MMHG (35-45); PO2 (O2 TENSION) 80 MMHG (79-93); SAMPLE Arterial; pH 7.45 (7.37-7.43)
[2016-06-22 05:09] LABS: BASOPHILS 0.1 %; BASOPHILS ABSOLUTE 0.01 10/3/uL (0.0-0.16); EOSINOPHILS 1.2 %; EOSINOPHILS ABSOLUTE 0.09 10/3/uL (0.0-0.53); HEMATOCRIT 26.6 % (36.0-48.0); HEMOGLOBIN 8.7 g/dL (12.0-16.0); IMMATURE GRANULOCYTES 0.1 %; IMMATURE GRANULOCYTES ABSOLUTE 0.01 10/3/uL (0.0-0.11); LYMPHOCYTES 29.2 %; LYMPHOCYTES ABSOLUTE 2.14 10/3/uL (0.67-4.30); MEAN CORPUS HGB CONC 32.7 g/dL (32.0-36.0); MEAN CORPUSCULAR HEMOGLOB 28.2 pg (26.0-34.0); MEAN CORPUSCULAR VOLUME 86.4 fL (80-100); MONOCYTES ABSOLUTE 0.81 10/3/uL (0.21-1.20); NEUTROPHILS 58.4 %; NEUTROPHILS ABSOLUTE 4.28 10/3/uL (2.02-8.40); PLATELET COUNT 340 10/3/uL (150-400); RBC DISTRIBUTION WIDTH 14.7 % (12.0-16.0); RED CELL COUNT 3.08 10/6/uL (4.0-5.6); WHITE BLOOD CELLS 7.3 10/3/uL (4.5-10.5)
[2016-06-22 05:13] LABS: MANUAL DIFF NO %
[2016-06-22 05:27] LABS: BUN (BLOOD UREA NITROGEN) 46 MG/DL (6-23); CALCIUM, SERUM 9.3 MG/DL (8.5-10.4); CHLORIDE, SERUM 100 MMOL/L (96-112); CO2 (CARBON DIOXIDE) 32 MMOL/L (24-34); CREATININE 3.77 MG/DL (0.55-1.02); GFR AFRICAN AMERICAN 12 ML/MIN (>=60); GFR NON AFRICAN AMERICAN 11 ML/MIN (>=60); GLUCOSE, SERUM 176 MG/DL (60-99); POTASSIUM, SERUM 4.1 MMOL/L (3.5-5.3); SODIUM, SERUM 137 MMOL/L (135-148)
[2016-06-22 06:32] LABS: PROCALCITONIN 0.34 ng/mL (<0.5)
[2016-06-23 05:41] LABS: BASOPHILS 0.4 %; BASOPHILS ABSOLUTE 0.03 10/3/uL (0.0-0.16); EOSINOPHILS 2.1 %; EOSINOPHILS ABSOLUTE 0.16 10/3/uL (0.0-0.53); HEMATOCRIT 27.8 % (36.0-48.0); IMMATURE GRANULOCYTES 0.1 %; IMMATURE GRANULOCYTES ABSOLUTE 0.01 10/3/uL (0.0-0.11); LYMPHOCYTES 36.3 %; LYMPHOCYTES ABSOLUTE 2.73 10/3/uL (0.67-4.30); MEAN CORPUS HGB CONC 32.4 g/dL (32.0-36.0); MEAN CORPUSCULAR VOLUME 86.6 fL (80-100); MEAN PLATELET VOLUME 10.2 fL (9.2-13.0); MONOCYTES ABSOLUTE 0.53 10/3/uL (0.21-1.20); NEUTROPHILS 54.1 %; NEUTROPHILS ABSOLUTE 4.06 10/3/uL (2.02-8.40); PLATELET COUNT 398 10/3/uL (150-400); RBC DISTRIBUTION WIDTH 14.5 % (12.0-16.0); RED CELL COUNT 3.21 10/6/uL (4.0-5.6); WHITE BLOOD CELLS 7.5 10/3/uL (4.5-10.5)
[2016-06-23 05:44] LABS: MANUAL DIFF NO %
[2016-06-23 05:59] LABS: ALBUMIN 1.9 G/DL (3.5-5.0); BUN (BLOOD UREA NITROGEN) 46 MG/DL (6-23); CALCIUM, SERUM 9.4 MG/DL (8.5-10.4); CHLORIDE, SERUM 101 MMOL/L (96-112); CO2 (CARBON DIOXIDE) 30 MMOL/L (24-34); CREATININE 3.77 MG/DL (0.55-1.02); FREE T4 1.09 NG/DL (0.76-1.46); GFR AFRICAN AMERICAN 12 ML/MIN (>=60); GFR NON AFRICAN AMERICAN 11 ML/MIN (>=60); GLUCOSE, SERUM 159 MG/DL (60-99); POTASSIUM, SERUM 4.1 MMOL/L (3.5-5.3); SODIUM, SERUM 138 MMOL/L (135-148)
[2016-06-23 06:00] LABS: PHOSPHORUS, SERUM 3.9 MG/DL (2.5-4.5)
[2016-06-24 04:16] LABS: BASOPHILS 0.4 %; BASOPHILS ABSOLUTE 0.03 10/3/uL (0.0-0.16); EOSINOPHILS 2.3 %; EOSINOPHILS ABSOLUTE 0.17 10/3/uL (0.0-0.53); HEMATOCRIT 28.7 % (36.0-48.0); HEMOGLOBIN 9.4 g/dL (12.0-16.0); IMMATURE GRANULOCYTES 0.1 %; IMMATURE GRANULOCYTES ABSOLUTE 0.01 10/3/uL (0.0-0.11); LYMPHOCYTES 30.5 %; MEAN CORPUS HGB CONC 32.8 g/dL (32.0-36.0); MEAN CORPUSCULAR HEMOGLOB 28.2 pg (26.0-34.0); MEAN CORPUSCULAR VOLUME 86.2 fL (80-100); MEAN PLATELET VOLUME 10.1 fL (9.2-13.0); MONOCYTES 9.7 %; MONOCYTES ABSOLUTE 0.73 10/3/uL (0.21-1.20); PLATELET COUNT 422 10/3/uL (150-400); RBC DISTRIBUTION WIDTH 14.3 % (12.0-16.0); RED CELL COUNT 3.33 10/6/uL (4.0-5.6); WHITE BLOOD CELLS 7.5 10/3/uL (4.5-10.5)
[2016-06-24 04:17] LABS: MANUAL DIFF NO %
[2016-06-24 04:23] LABS: PARTIAL THROMBO TIME 24.7 SEC (22.5-37.2); PROTIME (NOT ORD) 13.2 SEC (12.0-14.5)
[2016-06-24 04:30] LABS: BUN (BLOOD UREA NITROGEN) 44 MG/DL (6-23); CHLORIDE, SERUM 101 MMOL/L (96-112); CO2 (CARBON DIOXIDE) 30 MMOL/L (24-34); CREATININE 3.56 MG/DL (0.55-1.02); GFR AFRICAN AMERICAN 13 ML/MIN (>=60); GFR NON AFRICAN AMERICAN 12 ML/MIN (>=60); GLUCOSE, SERUM 166 MG/DL (60-99); POTASSIUM, SERUM 4.4 MMOL/L (3.5-5.3); SODIUM, SERUM 139 MMOL/L (135-148); TOTAL PROTEIN 6.1 G/DL (6.0-8.5)
[2016-06-24 14:21] LABS: LDH BODY FLUID (NOT ORD) 50 U/L; PROTEIN BODY FLUID 1.4 G/DL
[2016-06-24 14:24] LABS: BODY FLUID CHOLESTEROL < 50 MG/DL
[2016-06-24 17:27] LABS: BD FL SOURCE (NOT ORD) LT PLEURAL
[2016-06-25 07:10] LABS: BASOPHILS 0.3 %; BASOPHILS ABSOLUTE 0.02 10/3/uL (0.0-0.16); EOSINOPHILS 2.6 %; EOSINOPHILS ABSOLUTE 0.19 10/3/uL (0.0-0.53); HEMATOCRIT 29.6 % (36.0-48.0); HEMOGLOBIN 9.5 g/dL (12.0-16.0); IMMATURE GRANULOCYTES 0.3 %; IMMATURE GRANULOCYTES ABSOLUTE 0.02 10/3/uL (0.0-0.11); LYMPHOCYTES 36.4 %; LYMPHOCYTES ABSOLUTE 2.62 10/3/uL (0.67-4.30); MEAN CORPUS HGB CONC 32.1 g/dL (32.0-36.0); MEAN CORPUSCULAR HEMOGLOB 27.6 pg (26.0-34.0); MEAN PLATELET VOLUME 10.2 fL (9.2-13.0); MONOCYTES 8.6 %; MONOCYTES ABSOLUTE 0.62 10/3/uL (0.21-1.20); NEUTROPHILS 51.8 %; NEUTROPHILS ABSOLUTE 3.73 10/3/uL (2.02-8.40); PLATELET COUNT 429 10/3/uL (150-400); RBC DISTRIBUTION WIDTH 14.1 % (12.0-16.0); RED CELL COUNT 3.44 10/6/uL (4.0-5.6); WHITE BLOOD CELLS 7.2 10/3/uL (4.5-10.5)
[2016-06-25 07:14] LABS: MANUAL DIFF NO %
[2016-06-25 07:21] LABS: ALBUMIN 1.9 G/DL (3.5-5.0); BUN (BLOOD UREA NITROGEN) 45 MG/DL (6-23); CHLORIDE, SERUM 100 MMOL/L (96-112); CO2 (CARBON DIOXIDE) 32 MMOL/L (24-34); CREATININE 3.34 MG/DL (0.55-1.02); GFR AFRICAN AMERICAN 14 ML/MIN (>=60); GFR NON AFRICAN AMERICAN 12 ML/MIN (>=60); GLUCOSE, SERUM 177 MG/DL (60-99); POTASSIUM, SERUM 4.1 MMOL/L (3.5-5.3); SODIUM, SERUM 138 MMOL/L (135-148)
[2016-06-26 04:44] LABS: BUN (BLOOD UREA NITROGEN) 47 MG/DL (6-23); CALCIUM, SERUM 9.3 MG/DL (8.5-10.4); CHLORIDE, SERUM 101 MMOL/L (96-112); CO2 (CARBON DIOXIDE) 31 MMOL/L (24-34); GFR AFRICAN AMERICAN 14 ML/MIN (>=60); GFR NON AFRICAN AMERICAN 12 ML/MIN (>=60); GLUCOSE, SERUM 126 MG/DL (60-99); PHOSPHORUS, SERUM 3.6 MG/DL (2.5-4.5); POTASSIUM, SERUM 4.3 MMOL/L (3.5-5.3); SODIUM, SERUM 139 MMOL/L (135-148)
[2016-06-27 05:34] LABS: BUN (BLOOD UREA NITROGEN) 50 MG/DL (6-23); CALCIUM, SERUM 8.9 MG/DL (8.5-10.4); CHLORIDE, SERUM 101 MMOL/L (96-112); CO2 (CARBON DIOXIDE) 32 MMOL/L (24-34); CREATININE 3.21 MG/DL (0.55-1.02); GFR AFRICAN AMERICAN 15 ML/MIN (>=60); GFR NON AFRICAN AMERICAN 13 ML/MIN (>=60); GLUCOSE, SERUM 129 MG/DL (60-99); PHOSPHORUS, SERUM 3.9 MG/DL (2.5-4.5); POTASSIUM, SERUM 3.8 MMOL/L (3.5-5.3); SODIUM, SERUM 138 MMOL/L (135-148)
[2016-09-07] MEDS ORDERED: SODBICAR10 PO (14:43)
[2016-09-07] MEDS ORDERED: SUCR PO (14:43)
[2016-09-07] MEDS ORDERED: APRES50 PO (14:44)
[2016-09-07] MEDS ORDERED: VITAMIN D31000 UNIT PO (14:45)
[2016-09-08] MEDS ORDERED: SIMBRINZA 1%-0.28 ML OPH (14:12)
[2016-09-08] MEDS ORDERED: TIMOLOL MAL0.5 % OPH (14:57)
[2016-09-12] MEDS ORDERED: ASAB PO (12:36)
[2016-09-12] MEDS ORDERED: TRUSOPT2 % OPH (12:37)
[2016-09-12] MEDS ORDERED: BRIMONIDINE0.2 % OPH (12:37)
[2016-09-12] MEDS ORDERED: CAT2 PO (12:42)
[2016-09-12] MEDS ORDERED: LEVEMIR SC ×2 (12:44→12:45)
== END 2016-06-27 18:02 | disposition home or self-care (01) | DRG 682 ==
LOC: ER 15:20 → 5NO 18:10
PROVIDERS: Family Medicine; Internal Medicine; Internal Medicine Nephrology; Nurse Practitioner Family
PROC: 0W9B3ZZ Drainage of Left Pleural Cavity, Percutaneous Approach (ICD-10-PCS; principal; 2016-06-22)
PROC: 0W993ZZ Drainage of Right Pleural Cavity, Percutaneous Approach (ICD-10-PCS; 2016-06-22)
DX: N17.9 Acute kidney failure, unspecified (principal); I50.33 Acute on chronic diastolic (congestive) heart failure; J96.91 Respiratory failure, unspecified with hypoxia; J90 Pleural effusion, not elsewhere classified; I13.0 Hypertensive heart and chronic kidney disease with heart failure and stage 1 through stage 4 chronic kidney disease, or unspecified chronic kidney disease; E11.22 Type 2 diabetes mellitus with diabetic chronic kidney disease; N18.4 Chronic kidney disease, stage 4 (severe); J44.9 Chronic obstructive pulmonary disease, unspecified; F17.210 Nicotine dependence, cigarettes, uncomplicated; Z79.4 Long term (current) use of insulin; E11.40 Type 2 diabetes mellitus with diabetic neuropathy, unspecified; M51.37 Other intervertebral disc degeneration, lumbosacral region; D63.1 Anemia in chronic kidney disease
CPT/HCPCS: 32555; 36600; 71010; 71250; 72131; 80048; 80069; 81001; 82465; 82805; 82962; 83036; 83605; 83615; 83735; 83880; 84145; 84155; 84157; 84439; 84443; 84484; 85025; 85610; 85730; 87040; 87086; 93005; 96374; 97110-GP; 97116-GP; 97162-GP; 99285; A9270-GY; G8978-CK-GP; G8979-CJ-GP